=== PATIENT | female | born 1990 ===

== ENCOUNTER 2023-04-27 12:57 | Emergency (ER) | payer MEDICAID, SELFPAY ==
--- NOTE | ~2023-04-27 | US_ITS ---
EXAMINATION: US OBSTETRICAL ULTRASOUND CLINICAL INFORMATION: Right lower quadrant abdominal pain COMPARISON: None available. LMP: Unknown. Gestational age by maternal dates is unknown. Estimated date of delivery by maternal dates is unknown. TECHNIQUE: Ultrasound of the maternal pelvis is performed using transabdominal transducer. M-mode Doppler is also performed. FINDINGS: There is a single intrauterine gestational sac with visible yolk sac, embryo/fetus, and cardiac activity. There is no significant subchorionic hemorrhage or hematoma. HR: 152 beats per minute. CRL (crown rump length): 5.22 cm (12 weeks 0 days +/- 4 days). ELPIDIO (estimated date of delivery): 11/09/2023 +/- 4 days. MATERNAL ADNEXA: The right maternal ovary measures 3.6 x 1.9 x 2.4 cm. Normal size and appearance with normal Doppler vascularity. The left maternal ovary measures 2.2 x 1.2 x 1.2 cm. Normal size and appearance with normal Doppler vascularity. 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 There is no significant maternal adnexal mass. No maternal pelvic ascites. US/US OB <= 14 weeks fetus IMPRESSION: 1. Single living intrauterine gestation with ultrasound gestational age of 12 weeks 0 days +/- 4 days. 2. Estimated date of delivery is 11/09/2023 +/- 4 days. 3. No maternal adnexal mass or pelvic ascites.
[2023-04-27 13:26] VITALS: BP 145/82; PULSE 85; RESP 18; TEMP 36.8; O2SAT 100; BMI 17.4
--- NOTE | 2023-04-27 13:26 | ED.FEMALEGU ---
HPI - Female Genitourinary General Chief complaint: Abdominal Pain Stated complaint: +preg test 2 days ago/ abd pain/ fainting Time Seen by Provider: 04/27/23 18:01 Source: patient, RN notes reviewed and old records reviewed Mode of arrival: ambulatory Limitations: no limitations History of Present Illness HPI Narrative: [age] old female presents for evaluation of nausea vomiting and a syncopal episode. Patient reports that the syncopal episode happened 2 days ago while she was at work She had some lower abdominal pain today which prompted her to come to the hospital Patient denies any vaginal bleeding or discharge She has never been before Currently she has no symptoms and feels well No other complaints or concerns at this time Related Data Previous Rx's Medication Instructions Recorded diphenhydramine HCl 25 mg capsule 50 mg (2 x 25 mg) PO Q6H PRN 08/03/20 (Benadryl) allergic reaction #20 caps prednisone 20 mg tablet 40 mg (2 x 20 mg) PO DAILY #10 tabs 08/03/20 vitamins no.147-iron 1 tab PO DAILY #30 tabs 04/27/23 gluconate 13 mg-folic acid 1 mg tablet Allergies Allergy/AdvReac Type Severity Reaction Status Date / Time No Known Allergies Allergy Verified 04/27/23 13:26 Review of Systems Constitutional: Constitutional: Denies chills and Denies fever(s) Cardiovascular: Cardiovascular: Denies chest pain, Reports syncope and Denies dyspnea Respiratory: Respiratory: Denies cough and Denies dyspnea Gastrointestinal: Gastrointestinal: Reports abdominal pain, Reports nausea and Reports vomiting Genitourinary: Genitourinary: Denies vaginal discharge Musculoskeletal: Musculoskeletal: Denies back pain Neurologic: Reports syncope PMFSH Past Medical History Medical History Patient denies significant medical history Physical Exam Vital Signs: Vital Signs: Last Vital Signs Temp 98.6 F 04/27/23 18:21 Pulse 72 04/27/23 18:21 Resp 20 04/27/23 18:21 BP 113/83 04/27/23 18:21 Pulse Ox 100 04/27/23 18:21 O2 Del Method Room Air 04/27/23 18:21 BMI result Body Mass Index 17.4 Const: General: healthy appearing, comfortable, no acute distress, alert and awake Nutritional Appearance: well nourished Orientation/consciousness: patient oriented x3 HEENT: Head: Yes normocephalic and Yes atraumatic Eyes: Eyelids: Yes eyelids normal Conjunctivae: conjunctivae normal Sclerae: sclerae normal Corneas: corneas normal Pupils: Equal, round and reactive pupils present EOM: EOMs intact bilaterally Neck: Neck: Yes full ROM Resp: Effort & Inspection: normal respiratory effort, able to speak in complete sentences and not labored Cardio: Rate: regular rate Rhythm: regular rhythm GI: Inspection: No distended Palpation (GI): Soft to palpation, not firm, nontender, no guarding and not rigid Skin: General skin exam: elasticity normal Neuro: General: patient oriented x3 Cranial nerves: Yes Equal, round and reactive pupils present and Yes Bilaterally intact EOM present Cognition (Neuro): normal cognition Course Course Course Narrative: This is an RME: Additional HPI, ROS, PE not included below will be deferred to primary provider. Patient is a 32-year-old female reporting positive home test 2 days ago, LMP in March. reports recently being tired, a lot of nausea/ vomiting. 2 days ago she syncopized at work. yesterday began with RLQ stabbing pain intermittently. Denies vaginal bleeding, discharge, recent dyuria, but not at this moment. Plan: Labs, urinalysis, ultrasound Medical Decision Making Medical Decision Making [facility] Narrative: 32 old female presents for evaluation of multiple complaints. She had a syncopal episode 2 days ago which was worked up with labs, EKG. Her EKG is nonischemic, normal sinus rhythm. Her labs were significant for positive hCG, given the abdominal pain an ultrasound was ordered which shows a single intrauterine gestation of about 12 weeks. This was discussed with the patient. The is likely the cause of her symptoms of abdominal pain nausea, vomiting. All questions were answered. She is currently asymptomatic, blood pressure was initially elevated on arrival which improved without any intervention. Differential Diagnosis Differential Diagnoses: The differential diagnosis associated with the presentation includes Ectopic Syncope Arrhythmia Dehydration OPAL Lab Data [facility] Lab Attestation statement: I reviewed the patient's lab results. Mild leukocytosis to 10.9 K. Patient has a normal hemoglobin 12.2 with a very slightly low hematocrit 36.7. No significant electrolyte abnormalities. UA without signs of UTI or proteinuria 04/27/23 14:39 04/27/23 14:39 Labs: Lab Results 04/27/23 Range/Units 14:39 WBC 10.9 H (4.8-10.8) X10*3/uL RBC 4.21 (4.20-5.50) X10*6/uL Hgb 12.2 (12.0-16.0) g/dl Hct 36.7 L (37.0-47.0) % MCV 87.2 (80.0-98.0) fL MCH 29.0 (27.0-33.0) pg MCHC 33.2 (31.0-35.0) g/dl RDW 13.9 (11.0-16.0) % Plt Count 407 H (160-400) X10*3/uL MPV 8.9 L (9.4-12.3) fL Immature Gran % (Auto) 0.3 (0.0-0.4) % Neut % (Auto) 74.9 H (45-73) % Lymph % (Auto) 18.5 L (20-40) % [place] % (Auto) 4.7 (2-11) % Eos % (Auto) 1.3 (0-4) % Baso % (Auto) 0.3 (0-2) % Lymph # (Auto) 2.0 (1.2-4.9) X10*3/uL [place] # (Auto) 0.5 (0.1-1.2) X10*3/uL Eos # (Auto) 0.1 (0.0-0.4) X10*3/uL Baso # (Auto) 0.0 (0.0-0.2) X10*3/uL Abs Immat Gran (auto) 0.03 (0.00-0.03) X10*3/uL Absolute Neuts (auto) 8.2 (2.0-8.3) x10*3/uL Absolute Nucleated RBC 0.000 (0.0-0.012) X10*3/uL Nucleated RBC % (auto) 0.0 (0.0-0.2) /100WBC Sodium 139 (135-145) mmol/L Potassium 3.6 (3.3-5.1) mmol/L Chloride 105 (96-108) mmol/L Carbon Dioxide 22 (22-29) mmol/L Anion Gap 16 (12-20) BUN 10 (9-16) mg/dL Creatinine 0.59 (0.5-1.4) mg/dL Estim Creat Clear Calc 89.1 Estimated GFR > 60 Random Glucose 79 (60-115) mg/dL Calcium 9.2 (8.4-10.2) mg/dL Total Bilirubin 0.1 (0.0-1.0) mg/dL AST 11 (5-31) U/L ALT 8 (0-31) U/L Alkaline Phosphatase 50 (39-117) U/L Total Protein 7.2 (6.5-8.0) g/dL Albumin 4.1 (3.5-5.0) g/dL Lipase 34 (8-78) U/L Beta HCG, Quant 91417 mIU/mL Urine Color Yellow Urine Appearance Cloudy Urine pH 5.5 (5.0-9.0) Ur Specific [place] 1.025 (1.005-1.025) Urine Protein Negative (Neg-Trace) mg/dL Urine Glucose (UA) Negative (Negative) mg/dL Urine Ketones Negative (Negative) mg/dL Urine Blood Negative (Negative) Urine Nitrite Negative (Negative) Ur Leukocyte Esterase Negative (Negative) Independent Interpretation I performed an independent interpretation of an: EKG (see above) Radiology Impression Discussion of test interpretation with radiology: I have reviewed the radiologist's reading. (Single intrauterine gestation approximately 12 weeks +/-4 days.) Discharge Plan Discharge Clinical Impression: , Syncope Patient Disposition: Home, Self-Care Instructions: Syncope (ED), at 11 to 14 Weeks (ED) Additional Instructions: Your workup in the ER today was reassuring. However you were found to be , about 12 weeks. Is a single intrauterine gestation You need to follow-up with OBGYN Unfortunately, we do not have any OBGYN services at this hospital You may follow-up with [facility] by calling You should start taking vitamins which were prescribed You may use Tylenol for any discomfort, but do not take ibuprofen while your You should avoid drinking alcohol Prescriptions: New 147-iron gluc-folic 13 mg iron- 1 mg tablet 1 tab PO DAILY Qty: 30 0RF No Action prednisone 20 mg tablet 40 mg PO DAILY Qty: 10 0RF diphenhydramine HCl [Benadryl] 25 mg capsule 50 mg PO Q6H PRN (Reason: allergic reaction) Qty: 20 0RF
[2023-04-27 14:44] LABS: MANUAL DIFF FLAG NO
[2023-04-27 14:45] LABS: Basophils Percent Auto 0.3 % (0-2); Eosinophils Absolute Auto 0.1 X10*3/uL (0.0-0.4); Eosinophils Percent Auto 1.3 % (0-4); Hematocrit 36.7 % (37.0-47.0); Hemoglobin 12.2 g/dl (12.0-16.0); Imm Gran Abs Auto 0.03 X10*3/uL (0.00-0.03); Imm Gran Pct Auto 0.3 % (0.0-0.4); Lymphocytes Percent Auto 18.5 % (20-40); Mean Corpuscular HGB Conc 33.2 g/dl (31.0-35.0); Mean Corpuscular Volume 87.2 fL (80.0-98.0); Mean Platelet Volume 8.9 fL (9.4-12.3); Monocytes Absolute Auto 0.5 X10*3/uL (0.1-1.2); Monocytes Percent Auto 4.7 % (2-11); Neutrophils Absolute Auto 8.2 x10*3/uL (2.0-8.3); Neutrophils Percent Auto 74.9 % (45-73); Platelet Count 407 X10*3/uL (160-400); Red Blood Count 4.21 X10*6/uL (4.20-5.50); Red Cell Distribution Width 13.9 % (11.0-16.0); White Blood Count 10.9 X10*3/uL (4.8-10.8)
[2023-04-27 14:49] LABS: Appearance Urine Cloudy; Color Urine Yellow; Glucose Urine UA Negative (Negative); Leukocyte Esterase Urine Negative (Negative); Nitrite Urine Negative (Negative); PH 5.5 (5.0-9.0); Specific Gravity - Urine 1.025 (1.005-1.025); Urine Blood Negative (Negative); Urine Ketones Negative (Negative); Urine Protein Negative (Neg-Trace)
[2023-04-27 15:07] LABS: Alanine Aminotransferase 8 U/L (0-31); Albumin Level 4.1 g/dL (3.5-5.0); Alkaline Phosphatase 50 U/L (39-117); Anion Gap 16 (12-20); Aspartate Amino Transferase 11 U/L (5-31); Bilirubin Total 0.1 mg/dL (0.0-1.0); Blood Urea Nitrogen 10 mg/dL (9-16); Calcium 9.2 mg/dL (8.4-10.2); Carbon Dioxide 22 mmol/L (22-29); Chloride 105 mmol/L (96-108); Creatinine Clr Calc Pharmacy 89.1; Estimated Glomerular Filt Rate > 60; Glucose Random 79 mg/dL (60-115); HCG Quantitative 13258 mIU/mL; Lipase 34 U/L (8-78); Potassium 3.6 mmol/L (3.3-5.1); Sodium 139 mmol/L (135-145); Total Protein 7.2 g/dL (6.5-8.0)
--- NOTE | 2023-04-27 18:02 | ECG_ITS ---
Test Reason : SYNCOPE Blood Pressure : / mmHG Vent. Rate : 077 BPM Atrial Rate : 077 BPM P-R Int : 116 ms QRS Dur : 076 ms QT Int : 370 ms P-R-T Axes : 024 064 003 degrees QTc Int : 418 ms Normal sinus rhythm Normal ECG No previous ECGs available Referred By: Winston Israel Electronically Signed By:GARRETT NYE MD
[2023-04-27 18:21] VITALS: BP 113/83; PULSE 72; RESP 20; TEMP 37; O2SAT 100
== END 2023-04-27 18:49 | disposition home or self-care (01) ==
PROVIDERS: Nurse Practitioner Family; Emergency Provider Emergency Medicine
DX: O21.9 Vomiting of pregnancy, unspecified (principal); Z3A.00 Weeks of gestation of pregnancy not specified; R10.9 Unspecified abdominal pain; R55 Syncope and collapse
CPT/HCPCS: 36415; 76801; 80053; 81003; 83690; 84702; 85025; 93005; 99284

== ENCOUNTER → 2023-04-27 18:02 | Outpatient (BNV) | payer MEDICAID, SELFPAY | PROVIDERS: Emergency Provider Emergency Medicine; Visit Provider Internal Medicine Cardiovascular Disease | DX: R55 Syncope and collapse (principal) | CPT/HCPCS: 93010 ==